=== PATIENT | female | born 1950 | race Caucasian/White ===

== ENCOUNTER → 2019-04-23 20:00 | Outpatient (CLI) | payer MEDICARE, OTHER, SELFPAY | PROVIDERS: PCP Family Medicine | DX: G47.33 Obstructive sleep apnea (adult) (pediatric) (principal) | CPT/HCPCS: 95811 ==

== ENCOUNTER → 2019-04-24 12:20 | Outpatient (CLI) | payer BC, MEDICARE, SELFPAY ==
[2019-04-24 07:43] VITALS: BMI 37.8
== END ==
PROVIDERS: PCP Family Medicine; Referring Provider Nurse Practitioner Acute Care; Visit Provider Nurse Practitioner Acute Care
DX: Z46.89 Encounter for fitting and adjustment of other specified devices (principal)

== ENCOUNTER → 2019-05-01 13:16 | Outpatient (CLI) | payer MEDICARE, BC, SELFPAY ==
[2019-04-24 07:43] VITALS: BMI 37.8
--- NOTE | 2019-05-02 06:55 | PFT ---
INTRODUCTION: The patient is a 68-year-old female that presents for pulmonary function studies secondary to a diagnosis of shortness of breath. Respiratory therapy reports good patient effort. Bronchodilators were used during testing. INTERPRETATION: Forced expiration spirometry demonstrates no evidence of a large airways obstructive ventilatory defect. There was no significant response to aerosolized bronchodilators. Spirograms are of good quality and plateau normally. Body plethysmography was performed. Total lung capacity is elevated at 123% of predicted. However, this is likely spurious, given that all of the lung volumes are significantly elevated. Diffusing capacity by single breath CO was at the lower limits of normal at 66% of predicted. IMPRESSION: Normal spirometry and lung volumes. Diffusing capacity is at the lower limits of normal.
== END ==
PROVIDERS: PCP Family Medicine; Referring Provider Nurse Practitioner Acute Care; Visit Provider Nurse Practitioner Acute Care
DX: R06.02 Shortness of breath (principal)
CPT/HCPCS: 94060; 94726; 94729

== ENCOUNTER → 2019-08-12 13:25 | Outpatient (CLI) | payer MEDICARE, OTHER, BC, SELFPAY ==
[2019-07-31 07:38] VITALS: BMI 37.8
== END ==
PROVIDERS: Visit Provider Internal Medicine Critical Care Medicine
DX: G47.33 Obstructive sleep apnea (adult) (pediatric) (principal)
CPT/HCPCS: 98960; G0463